=== PATIENT | female | born 1970 | race Caucasian/White ===

== ENCOUNTER 2020-10-29 14:51 | Outpatient (REF) | payer MEDICAID, SELFPAY ==
[2020-10-29 19:43] LABS: ALT 47 U/L (14-59); AST 24 U/L (15-37); Albumin 4.1 g/dL (3.4-5.0); Alkaline Phosphatase 89 U/L (46-116); Anion Gap 11.3 mmol/L (3-11); BUN 15 mg/dL (7-18); Bilirubin, Total 0.2 mg/dL (0.2-1.0); CO2 27.7 mmol/L (21.0-32.0); CREATININE 0.7 mg/dL (0.55-1.02); Calcium 9.4 mg/dL (8.5-10.1); Calculated LDL 165 mg/dL (<100); Chloride 102 mmol/L (98-107); Cholesterol 276 mg/dL (<200); Glucose 96 mg/dL (74-106); HDL Cholesterol 76 mg/dL (40-60); Potassium 4.4 mmol/L (3.5-5.1); Sodium 141 mmol/L (136-145); TSH (W/Ref FT4) 2.25 uIU/mL (0.36-3.74); Total Protein 7.8 g/dL (6.4-8.2); Triglyceride 178 mg/dL (<150)
== END 2020-10-29 14:52 | disposition home or self-care (01) ==
LOC: NCHCN 14:51
PROVIDERS: Visit Provider Nurse Practitioner
DX: L68.0 Hirsutism (principal); M34.9 Systemic sclerosis, unspecified; Z83.49 Family history of other endocrine, nutritional and metabolic diseases; Z13.220 Encounter for screening for lipoid disorders; Z83.3 Family history of diabetes mellitus
CPT/HCPCS: 80053; 80061; 84443

== ENCOUNTER 2021-08-28 03:28 | Outpatient (CLI) | payer MEDICAID, SELFPAY ==
[2021-08-28 08:29] LABS: Hemoglobin A1C 6.4 % (<5.7)
[2021-08-28 09:07] LABS: ALT 51 U/L (14-59); AST 28 U/L (15-37); Albumin 3.4 g/dL (3.4-5.0); Alkaline Phosphatase 98 U/L (46-116); Anion Gap 7.1 mmol/L (3-11); BUN 13 mg/dL (7-18); Bilirubin, Total 0.2 mg/dL (0.2-1.0); CO2 28.9 mmol/L (21.0-32.0); CREATININE 0.7 mg/dL (0.55-1.02); Calcium 8.7 mg/dL (8.5-10.1); Chloride 105 mmol/L (98-107); Glucose 128 mg/dL (74-106); Potassium 4.1 mmol/L (3.5-5.1); Sodium 141 mmol/L (136-145); Total Protein 7.6 g/dL (6.4-8.2)
[2021-08-29 10:13] LABS: HIV-1/2 Ag & Ab Screen Negative (Negative)
[2021-08-29 10:19] LABS: Hepatitis C Ab w Rflx HCV PCR Negative (Negative)
[2021-09-02 12:16] LABS: Renin Activity, Plasma 0.8 ng/mL/h
== END 2021-08-28 03:29 | disposition home or self-care (01) ==
LOC: LBO 03:28 → NCHCO 16:04 → NCHCN 18:00
PROVIDERS: Visit Provider Family Medicine
DX: F32.9 Major depressive disorder, single episode, unspecified (principal); F43.23 Adjustment disorder with mixed anxiety and depressed mood; Z13.1 Encounter for screening for diabetes mellitus; Z11.4 Encounter for screening for human immunodeficiency virus [HIV]; I10 Essential (primary) hypertension; L68.0 Hirsutism
CPT/HCPCS: 36415; 80053; 86803; 87389; 82088; 83036; 84244

== ENCOUNTER 2021-08-28 16:02 | Outpatient (REF) | payer MEDICAID, SELFPAY ==
[2021-08-28 14:19] LABS: Creatinine,Urine 107.75 mg/dL
[2021-08-28 14:34] LABS: Total Volume 1300 ml
[2021-09-01 23:31] LABS: Cortisol, U 17 mcg/24 h (3.5-45); Urine Volume 1300 mL
== END 2021-08-28 16:03 | disposition home or self-care (01) ==
LOC: NCHCN 16:02
PROVIDERS: Visit Provider Family Medicine
DX: I10 Essential (primary) hypertension (principal); L68.0 Hirsutism; E66.8 Other obesity; Z68.41 Body mass index [BMI] 40.0-44.9, adult
CPT/HCPCS: 81050; 82530; 82570; 83789

== ENCOUNTER 2021-09-23 14:46 | Outpatient (REF) | payer MEDICAID, SELFPAY ==
[2021-09-25 23:23] LABS: Midnight Cortisol <50 ng/dL (<100)
== END 2021-09-23 14:47 | disposition home or self-care (01) ==
LOC: NCHCN 14:46
PROVIDERS: Visit Provider Family Medicine
DX: I10 Essential (primary) hypertension (principal)
CPT/HCPCS: 82530

== ENCOUNTER → 2021-10-22 01:17 | Outpatient (CLI) | payer MEDICAID, SELFPAY ==
--- NOTE | 2021-10-22 15:30 | DI.MAMMO_ITS ---
Exam(s) MG MAMMO SCREENING 60 MIN DUR EXAM: MG MAMMO SCREENING 60 MIN DUR CLINICAL HISTORY: SCREENING FOR BREAST CANCER Z12.39, 60 MIN SPOT BECAUSE LARGE BREASTS TECHNIQUE: Mammograms were interpreted according to the usual protocol including computer analysis w [facility] CAD system, tomosynthesis and C-view imaging. COMPARISON: FINDINGS: The breasts are of moderate density with fairly symmetrical distribution of fibroglandular tissue. N o dominant mass is identified in either breast. There is an area of asymmetric density seen laterall y in the right breast on CC views which projects is somewhat superiorly on MLO views of the right bob ast and this area contains a few poorly visualized microcalcifications. Magnification spot compressi on views are requested for further evaluation. No other clumped microcalcification or mass is seen. No priors available for comparison. IMPRESSION: Additional mammographic views of the right breast requested as described above. Breast ultrasound ma y be indicated as well depending on the results of the additional mammographic views. BI-RADS Category 0 - Assessment Incomplete: Need additional imaging evaluation Breast Density - Category B - Scattered areas of fibroglandular density
== END ==
PROVIDERS: Visit Provider Nurse Practitioner Family
DX: Z12.31 Encounter for screening mammogram for malignant neoplasm of breast (principal); R92.8 Other abnormal and inconclusive findings on diagnostic imaging of breast
CPT/HCPCS: 77063; 77067

== ENCOUNTER → 2022-02-17 14:05 | Outpatient (CLI) | payer MEDICAID, SELFPAY ==
--- NOTE | 2022-02-17 | DI.MAMMO_ITS ---
Exam(s) MG MAMMO SCREEN CALL BACK UNI US BREAST RT LIMITED EXAM: MG MAMMO SCREEN CALL BACK UNI and U/S breast RT limited CLINICAL HISTORY: F/U MAMMO, ASYMMETRIC DENSITY BILATERALLY, R92.8. TECHNIQUE: Craniocaudal and mediolateral oblique Full Field Digital Mammography views of the right b reast with Computer Aided Diagnosis followed by Tomosynthesis and right breast ultrasound. COMPARISON: Comparison is made with prior examination. FINDINGS: Mammography/Tomosynthesis: Masses/Architectural Distortion: The ovoid density with internal punctate calcifications is again see n. Microcalcifictions: No suspicious pleomorphic-type are seen. Skin Thickening/Nipple Retraction: None. Limited right breast US: Echotexture: Normal appearance of the glandular tissue. Shadowing: No suspicious foci. Cyst: None. Solid lesions: None seen. Ductal dilation: None. IMPRESSION: 1. Persistent ovoid density with punctate internal calcifications. 2. This area should be further evaluated with biopsy. 3. The findings were discussed with Robin Hare at 4 p.m. on 02/17/2022. BI-RADS Category 4 - Suspicious Abnormality: Biopsy should be considered Breast Density - Category B - Scattered areas of fibroglandular density Breast density Category C or D implies that the patient has dense breast tissue. Dense breast tissue can make it harder to find cancer on a mammogram. Dense breast tissue is also associated with an incr eased risk of breast cancer. This information about the result of the mammogram report was provided to the patient to raise their awareness. Use this report when you speak with the patient about their risks for breast cancer, which includes their family history. At that time, you may recommend additional screening tests (Ultrasoun d or MRI) as these tests may add significant information. A negative radiographic report should not delay biopsy if a dominant or clinically suspicious mass is present. Up to ten percent of cancers are not identified on mammography. A negative report may reinforce clinical impression. Adenosis and dense breasts may obscure an underlying neoplasm. False positive reports average 6 to 10%. Patient will receive a letter notifying them of these results.
== END ==
PROVIDERS: PCP Student in an Organized Health Care Education/Training Program; Visit Provider Nurse Practitioner Family
DX: R92.8 Other abnormal and inconclusive findings on diagnostic imaging of breast (principal)
CPT/HCPCS: 76642; 77063; 77067

== ENCOUNTER 2022-06-25 02:48 | Outpatient (CLI) | payer MEDICAID, SELFPAY ==
--- NOTE | 2022-06-25 | DI.US_ITS ---
Exam(s) US THYROID EXAM: US THYROID CLINICAL HISTORY: ENLARGED THYROID, E04.9. TECHNIQUE: Ultrasound thyroid performed using standard protocol. COMPARISON: No exams were available for comparison FINDINGS: ISTHMUS: 3 mm RIGHT LOBE: Size: 3.7 x 1 x 6 x 1.5 cm Echogenicity: Normal. Vascularity: Normal. Nodules: No suspicious nodules. LEFT LOBE: Size: 3.5 x 1.3 x 1.1 cm Echogenicity: Normal. Vascularity: Normal. Nodules: Cord calcification lower pole with question of adjacent associated nodule versus shadowing f rom the calcification. Area of shadowing 6 x 3 x 5 millimeters. No follow-up recommended.. OTHER FINDINGS: No abnormally enlarged cervical lymph nodes. IMPRESSION: Normal size thyroid. No significant nodules. DATA REPOSITORY:
== END 2022-06-25 03:08 ==
PROVIDERS: Visit Provider Nurse Practitioner Family
DX: E04.9 Nontoxic goiter, unspecified (principal)
CPT/HCPCS: 76536

== ENCOUNTER 2022-08-04 16:22 | Outpatient (REF) | payer MEDICAID, SELFPAY ==
--- NOTE | 2022-08-04 15:50 | PAPFT_PTH ---
PATIENT: Paulina Olmstead LOC: PATTI U#:[id number] AGE/SX: 51/F ROOM: RE08/04/[address]: Joselin Ching MD : 1970 BED: DIS: 08/04/2022 SPEC #: [id number] RECD: 08/04/22 17:11 STATUS: SOM REKacey #: [id number] ALESSANDRA: 08/04/22 15:[address]: Joselin Ching DEPT: [facility] Cytology RECD BY: Mirtha Allen Tissues: 1 - CX/ENDOCX FOR PAP SMEARS Procedures: PAP THIN PREP/UVM Screening HPV DNA PROBE Comments: [id number]
== END 2022-08-04 16:23 | disposition home or self-care (01) ==
LOC: LBN 16:22
PROVIDERS: Visit Provider Obstetrics & Gynecology
DX: Z12.4 Encounter for screening for malignant neoplasm of cervix (principal); Z11.51 Encounter for screening for human papillomavirus (HPV)
CPT/HCPCS: 88142; 87624

== ENCOUNTER 2023-04-15 12:40 | Outpatient (REF) | payer MEDICAID, SELFPAY ==
--- OUTSIDE RECORDS SUMMARY | 2023-04-15 12:42 | XMS_ITS | Continuity of Care Document ---
Author Name Unknown Organization [facility] Address [address] [place] [address] Care Team Providers Care Cab Station Attendant Name Role Phone Archie Castro Primary Care Physician [phone] Encounter [facility] Date(s): 06/30/22 - 06/30/22 [facility] [address] [place] [address] Encounter Diagnosis DEONDRE (obstructive sleep apnea)(Discharge Diagnosis) - 06/30/22 PLMD (periodic limb movement disorder)(Discharge Diagnosis) - 06/30/22 Medically complex patient(Discharge Diagnosis) - 06/30/22 Insomnia(Discharge Diagnosis) - 06/30/22 Discharge Disposition: Home or Self Care Attending Physician: Maverick Villanueva MD Allergies, Adverse Reactions, Alerts Substance Reaction Severity Status penicillins Eruption Severe Active Assessment and Plan Future Appointments Functional Status 06/30/22 Other exposure to Infectious Disease Non e Medications Flonase 50 mcg/inh nasal spray 1 sprays, Nasal, Daily, 1 spray per nostril daily (2 sprays total daily), # 15.8 mL, 3 Refill(s), [id number] Start Date: 09/30/21 Status: Ordered hydroCHLOROthiazide 12.5 mg oral capsule 12.5 mg = 1 cap, Oral, Daily, # 30 cap, 0 Refill(s) Start Date: 09/30/21 Status: Ordered magnesium gluconate 500 mg oral tablet 500 mg = 1 tab, Oral, Daily, if not avail, may subsitute with magnesium gluconate 250mg tab 2 tabs daily, 180 tabs x 3 refills, # 90 tab, 3 Refill(s), [facility] #[id number] Start Date: 09/30/21 Stop Date: 09/25/22 Status: Ordered traZODone 50 mg oral tablet See Instructions, take 0.5 to 3 tabs qHS, # 90 cap, 2 Refill(s), [facility] #[id number] Start Date: 09/30/21 Status: Ordered Vitamin D3 2000 intl units oral capsule 50 mcg 1 cap, Oral, Daily, # 90 cap, 3 Refill(s), [facility][id number] Start Date: 09/30/21 Stop Date: 09/25/22 Status: Ordered Problem List Condition Confirmation Course Effective Dates Status Health Status Informant Assessment of risk for apnea Confirmed 04/30/21 Active Leg cramps Confirmed Active Daytime sleepiness Confirmed Active Depressive disorder Confirmed 04/30/21 Active Family history of diabetes mellitus Confirmed 04/30/21 Active Fatigue Confirmed Active FH: Thyroid disorder Confirmed 04/30/21 Active Hirsutism Confirmed 04/30/21 Active Hyperlipidemia screening Confirmed 04/30/21 Active Localized scleroderma Confirmed 04/30/21 Active Psychophysiologic insomnia Confirmed Active Snoring Confirmed Active Vital Signs Most recent to oldest [Reference Range]: 1 Peripheral Pulse Rate [60-100 bpm] 74 bp m (06/30/22 3:13 PM) Blood Pressure [90-140/60-90 mmHg] 131/7 7mmHg (06/30/22 3:13 PM) Weight 94.35 kg (06/30/22 3:13 PM) Weight Measured (lbs) 208.006 lb (06/30/22 3:13 PM) Height 154 cm (06/30/22 3:13 PM) Height/Length Measured (inches) 60.63 in ch (06/30/22 3:13 PM) BSA Measured 2.01 m2 (06/30/22 3:13 PM) Body Mass Index 39.78 kg/m2 (06/30/22 3:13 PM) Social History Social History Type Response Tobacco Never tobacco user T obacco Use:. Sex Female Progress note * Shawn Capps: PERFORM Event Display: Progress Note - Physician Authored Date: [id number] Patient Care team information Care Team Personnel Name: Robin Penaloza DNP Position: No Access Member Role: Family Medicine Address: Address: [address] [place] [id number] Name: Archie Castro MD Position: No Access Member Role: Primary Care Physician Address: Address: [facility] [address] [place] [address] [place] [address]-
--- OUTSIDE RECORDS SUMMARY | 2023-04-15 12:42 | XMS_ITS | Continuity of Care Document ---
Author Name Unknown Organization [facility] Address [address] [place] [address] Care Team Providers Care Adapted Physical Education Specialist Name Role Phone Archie Castro Primary Care Physician Encounter [facility] Date(s): 04/07/22 - 04/07/22 [facility] [address] [place] [address] Encounter Diagnosis Obstructive sleep apnea(Discharge Diagnosis) - 04/07/22 Nocturnal hypoxemia(Discharge Diagnosis) - 04/07/22 Periodic limb movement disorder(Discharge Diagnosis) - 04/07/22 Discharge Disposition: Home or Self Care Attending Physician: Maverick Villanueva MD Allergies, Adverse Reactions, Alerts Substance Reaction Severity Status penicillins Eruption Severe Active Assessment and Plan Future Appointments Functional Status 04/07/22 Other exposure to Infectious Disease Non e Medications Flonase 50 mcg/inh nasal spray 1 sprays, Nasal, Daily, 1 spray per nostril daily (2 sprays total daily), # 15.8 mL, 3 Refill(s), [id number] Start Date: 09/30/21 Status: Ordered hydroCHLOROthiazide 12.5 [...] refills, # 90 tab, 3 Refill(s), [id number] Start Date: 09/30/21 Stop Date: 09/25/22 Status: Ordered traZODone 50 mg oral tablet See Instructions, take 0.5 to 3 tabs qHS, # 90 cap, 2 Refill(s), [facility][id number] Start Date: 09/30/21 Status: Ordered Vitamin D3 2000 intl units oral capsule 50 mcg 1 cap, Oral, Daily, # 90 cap, 3 Refill(s), [facility][id number] Start Date: 09/30/21 Stop Date: 09/25/22 Status: [...] Most recent to oldest [Reference Range]: 1 Weight 93.89 kg (04/07/22 2:48 PM) Weight Measured (lbs) 206.992 lb (04/07/22 2:48 PM) Height 154 cm (04/07/22 2:48 PM) Height/Length Measured (inches) 60.63 in ch (04/07/22 2:48 PM) BSA Measured 2 m2 (04/07/22 2:48 PM) Body Mass Index 39.59 kg/m2 (04/07/22 2:48 PM) Social History Social History Type Response Tobacco Never tobacco user T obacco Use:. Sex Female Physician Outpatient Note * Maverick Villanueva MD: PERFORM, MODIFY, MODIFY Event Display: Office Clinic Note Physician Authored Date: [id number] [place] :1970 Age:51 years Sex:Female Visit Date:04/07/2022 Primary Care Physician: Archie Castro MD Chief Complaint psg results f/u History of Present Illness Pt states she slept well on the night of her PSG and had a great experience with the sleep clinic staff. She did not take any sleep aids that night and is off of sleep aides currently. ?? She is no longer taking Nyquil at night for sleep. ?? She states her BP is better controlled when she can do meditation. Review of Systems A 10-point REVIEW OF SYSTEM was obtained and reviewed, includes CONSTITUTIONAL, EYES, NOSE, THROAT,RESPIRATORY, HEART, GASTROINTESTINAL, UROLOGIC, MUSCULOSKELETAL, PSYCHIATRY, SKIN systems. Pertinent symptoms are discussed in history, otherwise negative. Physical Exam Vitals & Measurements HT:??154??cm?? WT:??93.89??kg?? BMI:??39.59?? BSA:??2?? General well appearing??statedage, no acute distress,??obesebuild HEENT: Significant mckenzie/moustache noted PSYCHIATRIC: well groomed, fluent speech, good insight, linear thought process, good eye contact,balanced NEUROLOGIC: alert, oriented, symmetric facial expression Assessment/Plan 1.??Obstructive sleep apnea??G47.33 Ordered: 34470 SL Titration PSG, 04/07/22, vivian in about 1 month so she can try cpap at home first (ok to tryfor just a week). Pt requests Ian as she had good experience w/ her and appreciated Ian going above and beyond to alleviate pt's concerns about geting Covid. Pls alert Chr... ?? 2.??Nocturnal hypoxemia??G47.34 Ordered: 87788 SL Titration PSG, 04/07/22, vivian in about 1 month so she can try cpap at home first (ok to tryfor just a week). Pt requests Ian as she had good experience w/ her and appreciated Ian going above and beyond to alleviate pt's concerns about geting Covid. Pls alert Chr... ?? 3.??Periodic limb movement disorder??G47.61 Ordered: 88591 SL Titration PSG, 04/07/22, vivian in about 1 month so she can try cpap at home first (ok to tryfor just a week). Pt requests Ian as she had good experience w/ her and appreciated Ian going above and beyond to alleviate pt's concerns about geting Covid. Pls alert Chr... ?? This visit was performed virtually using synchronous audio-visual connection via Zoom. As such, thephysical examination is necessarily limited. The risks and benefits of the use of this alternative platform were discussed with the patient and or guardian and verbal consent was obtained. My assessment and plans are based on such examination. Further evaluation, including in-person examination, may be needed depending on the response to management or today's recommendation.? The patient is??home.?? The provider is??home. ?? The patient has been positively identified and has consented to a video visit. ?? I provided greater than??40??minutes in the care of this patient including chart review and documentation, more than half the time was spent in eibp-it-ntrx counseling. ?? 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 ?? 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 ? Clinical Data Reviewed:? [place] Sleepiness Scale ESS - Sitting and reading: Moderate chance of dozing (04/07/22) ESS - Sitting and talking to someone: Would never doze (04/07/22) ESS - Watching television: Moderate chance of dozing (04/07/22) ESS - Sitting after lunch w/out alcohol: Slight chance of dozing (04/07/22) ESS - Sitting inactive in a public place: Slight chance of dozing (04/07/22) ESS - In a car while stopped in traffic: Would never doze (04/07/22) ESS - In a car for an hour without break: High chance of dozing (04/07/22) ESS - Lying down in afternoon: High chance of dozing (04/07/22) ESS - [place] Sleepiness Scale Total: 12 (04/07/22) ? Sleep Clinical Timeline:?? Seen on 09/30/2021??for sleep consult at the kind??request of Sybil??AUDI Giraldo??for sleep apnea. Suspect Obstructive Sleep Apnea based on: loud snoring, daytime fatigue, daytime sleepiness, witnessed apneas, feeling like not getting air when waking up, unrefreshing sleep,difficulty falling asleepand/or other times difficulty staying asleep and unable to return to sleep, and difficulty of??maintaing normal blood pressure. PSG was ordered. Also suspect possible PLMD due to tossing and turning and legs moving during sleep,??will monitor this at PSG ?? 02/19/2022. Diagnostic PSG. Wt.: 221.19 lbs. ??BMI = 42.48 kg/m2.?? 1.??Very Severe Obstructive Sleep Apnea associated with significant nocturnal hypoxemia 2.??Overall AHI: 49.7/hr; Overall RDI: 54.4/hr; REM AHI: 62.7/hr; Supine AHI: 80/hr; Right Lateral AHI:39 /hr; Left Lateral AHI: 14/hr; Prone AHI: N/A/hr. 3.??Mean SpO2: 89% and Leonidas SpO2: 58% on Room Air; 122.0 minutes spent with SpO2 less than or equal to 88% on Room Air. 4.??Moderate Periodic Limb Movement Disorder without significant arousals, PLM index 20.7/hr. PLM arousal index 1.8/hr.??Frequent leg movements observed in association with respiratory events, which did not meet criteria to be included in Periodic Limb Movement Index. ?? 04/07/2022: Start auto CPAP?? 5 to 15cm H20. Provided letter??for pt accessibility for running water and electricity at her request. Plan for titration PSG. ? Today's Assessment and Plan: ?We reviewed sleep study results in detail including apnea hypopnea index, positional data andoxygen data. ?We reviewed discussion of Obstructive Sleep Apnea, including pathophysiology,??associated superintendent marine oil terminal cardiovascular, neurocognitive and overall health effects, and importance of treatment.?Treatment options discussed.?Patient elects to proceed with PAP therapy.?Extensively reviewed process of starting treatment and commonly encountered problems and ways to find support and troubleshooting problems. ?Avoid drowsy driving and drowsy driving precautions as applicable.?Weight loss as applicable.?Discussed relationship between DEONDRE and weight loss.?Proceed with Titration Polysomnogram. In-facility sleep study requested. Order for auto CPAP 5 to 15cm H20 sent with PAP supplies., sent to [facility] Pt is off of all sleep aides at this time. Pt shares she is living on assisted housing from [place] and will need a letter for having electricity covered by the state for her CPAP machine. Titration PSG Instructions:??Pay attention to mask fit and refit as needed.??Try to find optimal pressure for both lateral and supine position sleep, especially Supine REM sleep. Document medicationsused on night of PSG.??If hypoxemia persist after respiratory events are resolved on CPAP, switch to BIPAP starting with pressure support of 4cm, increase pressure support up to 10cm if doing so helps with oxygen saturation. ?? Follow up: 2-3 months or sooner if needed. ?? Remote Scribed by??Chris Latham Patient Instructions ?? 04/07/2022 ?? To Whom It May Concern, ?? Paulina Olmstead is a patient under my care in the Sleep Clinic. ??She just got diagnosed with Very Severe Obstructive Sleep Apnea with Nocturnal Hypoxemia. ??This is a serious but treatable condition. ??In order to adequately treat this disorder, patient will need to use a PAP Machine with Humidifier,which requires electricity throughout the night. She will also need access to running water, in order to clean and care for her PAP Machine. ?? Thank you for time and attention. ??If you have any further questions, please feel free to reach out to me. ?? Sincerely, ?? Maverick Villanueva MD Board Certified Sleep Physician [facility] [place], [place] [phone] (Option??1) ?? Referral Orders Referral Management, Medical Service: RM Other, Reason: Auto CPAP 7 to 16cm; please try to expeditein-person set up due to severe DEONDRE, Start: 04/07/22, Instructions: [facility] Problem List/Past Medical History Ongoing Assessment of risk for apnea Daytime sleepiness Depressive disorder Family history of diabetes mellitus Fatigue FH: Thyroid disorder Hirsutism Hyperlipidemia screening Leg cramps Localized scleroderma Morbid obesity Psychophysiologic insomnia Snoring Historical No qualifying data Medications Flonase 50 mcg/inh nasal spray, 1 sprays, Nasal, Daily, 3 refills hydroCHLOROthiazide 12.5 mg oral capsule, 12.5 mg= 1 cap, Oral, Daily magnesium gluconate 500 mg oral tablet, 500 mg= 1 tab, Oral, Daily, 3 refills traZODone 50 mg oral tablet, See Instructions, 2 refills Vitamin D3 2000 intl units oral capsule, 50 mcg= 1 cap, Oral, Daily, 3 refills Allergies penicillins??(Eruption) Social History Electronic Cigarette/Vaping Electronic Cigarette Use: Never. Tobacco Never tobacco user Tobacco Use:. Family History Family history is negative Electronically Signed on 04/07/22 05:12 PM Maverick Villanueva MD Reviewed by: Maverick Villanueva MD Patient Care team information Personnel Name: Archie Castro MD Address: Address: [address] [place] [address]- [place]
--- OUTSIDE RECORDS SUMMARY | 2023-04-15 12:42 | XMS_ITS | Continuity of Care Document ---
Author Name Unknown Organization [facility] Address [address] [place] [address] Care Team Providers Care Diabetes Solutions Specialist Name Role Phone Archie Castro Primary Care Physician [phone] Encounter [facility] Date(s): 06/30/22 - 08/25/22 [facility] [address] [place] [address] Discharge Disposition: Home or Self Care Attending Physician: Maverick Villanueva MD Admitting Physician: Maverick Villanueva MD Referring Physician: Maverick Villanueva MD Allergies, Adverse Reactions, Alerts Substance Reaction Severity Status penicillins Eruption Severe Active Assessment and Plan Future Appointments Medications Flonase 50 mcg/inh nasal spray 1 sprays, Nasal, Daily, 1 spray per nostril daily (2 sprays total daily), # 15.8 mL, 3 Refill(s), [id number] Start Date: 09/30/21 Status: Ordered hydroCHLOROthiazide 12.5 [...] refills, # 90 tab, 3 Refill(s), [facility] #[id number] Start Date: 09/30/21 Stop Date: 09/25/22 Status: Ordered traZODone 50 mg oral tablet See Instructions, take 0.5 to 3 tabs qHS, # 90 cap, 2 Refill(s), [facility] #[id number] Start Date: 09/30/21 Status: Ordered Vitamin D3 2000 intl units oral capsule 50 mcg 1 cap, Oral, Daily, # 90 cap, 3 Refill(s), Pharmacy: [facility] #[id number] Start Date: 09/30/21 Stop Date: 09/25/22 Status: [...] Psychophysiologic insomnia Confirmed Active Snoring Confirmed Active Social History Social History Type Response Tobacco Never tobacco user T obacco Use:. Sex Female Patient Care team information Care Team Personnel Name: Robin Penaloza DNP Position: No Access Member Role: Family Medicine Address: Address: [facility] [address] [facility] [place] [address] [place] Name: Archie Castro MD Position: No Access Member Role: Primary Care Physician Address: Address: [facility] [address] [facility] [address]
--- OUTSIDE RECORDS SUMMARY | 2023-04-15 12:42 | XMS_ITS | Continuity of Care Document ---
Author Name Unknown Organization [facility] Address [address] [place] [address] Care Team Providers Care Associate Director Qa Name Role Phone Maverick Villanueva Primary Care Physician Encounter [facility] Date(s): 09/30/21 - 12/19/21 [facility] [address] [place] [address] Discharge Disposition: Home or Self Care Attending Physician: Maverick Villanueva MD Admitting Physician: Maverick Villanueva MD Referring Physician: Maverick Villanueva MD Allergies, Adverse Reactions, Alerts Substance Reaction Severity Status penicillins Eruption Severe Active Assessment and Plan Future Appointments Medications Flonase 50 mcg/inh nasal spray 1 sprays, Nasal, Daily, 1 spray per nostril daily (2 sprays total daily), # 15.8 mL, 3 Refill(s), Pharmacy: [facility] #[id number] Start Date: 09/30/21 Status: Ordered hydroCHLOROthiazide 12.5 [...] refills, # 90 tab, 3 Refill(s), [facility]acy: [facility] #[id number] Start Date: 09/30/21 Stop Date: 09/25/22 Status: Ordered traZODone 50 mg oral tablet See Instructions, take 0.5 to 3 tabs qHS, # 90 cap, 2 Refill(s), Pharmacy: [facility] #[id number] Start Date: 09/30/21 Status: Ordered Vitamin D3 2000 intl units oral capsule 50 mcg 1 cap, Oral, Daily, # 90 cap, 3 Refill(s), Pharmacy: [facility] #[id number] Start Date: 09/30/21 Stop Date: 09/25/22 Status: [...] Use:. Sex Female Patient Care team information Personnel Name: Maverick Villanueva MD Address: Address: Sleep Medicine [address] [place] [address] [place] [address]- [place]
--- OUTSIDE RECORDS SUMMARY | 2023-04-15 12:43 | XMS_ITS | Continuity of Care Document ---
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 Name Role Phone Unavailable, Physician Primary Care Physician Un available [facility]counter [facility] Date(s): 02/19/22 - 02/19/22 [facility] [address] [place] [address] Discharge Disposition: Home or Self Care Attending Physician: Maverick Villanueva MD Admitting Physician: Maverick Villanueva MD Referring Physician: Maverick Villanueva MD Allergies, Adverse Reactions, Alerts Substance Reaction Severity Status penicillins Eruption Severe Active Assessment and Plan Future Appointments Medications Flonase 50 mcg/inh nasal spray 1 sprays, Nasal, Daily, 1 spray per nostril daily (2 sprays total daily), # 15.8 mL, 3 Refill(s), Pharmacy: [facility] #[id number] Start Date: 09/30/21 Status: Ordered hydroCHLOROthiazide 12.5 [...] refills, # 90 tab, 3 Refill(s), Pharmacy: [facility] #[id number] Start Date: 09/30/21 Stop Date: 09/25/22 Status: Ordered traZODone 50 mg oral tablet See Instructions, take 0.5 to 3 tabs qHS, # 90 cap, 2 Refill(s), Pharmacy: [facility] #[id number] Start Date: 09/30/21 Status: Ordered Vitamin D3 2000 intl units oral capsule 50 mcg 1 cap, Oral, Daily, # 90 cap, 3 Refill(s), Pharmacy: [facility]/pharmacy #[id number] Start Date: 09/30/21 Stop Date: 09/25/22 Status: [...] Female Patient Care team information Personnel Name: Unavailable, Physician
[2023-04-15 15:40] LABS: HCT 46.2 % (36.0-46.0); HGB 15.3 g/dL (11.2-15.7); MCH 28.4 pg (27.0-33.0); MCHC 33.1 % (32.0-36.0); MCV 86 fL (80-95); MPV 11.2 fL (8.0-11.0); Platelet Count 348 10^3/uL (130-400); RBC 5.39 10^6/uL (3.93-5.22); RDW 13.6 % (11.7-14.6); RDW-SD 42.4 fL
[2023-04-15 16:23] LABS: ALT 50 U/L (14-59); AST 28 U/L (15-37); Albumin 4.1 g/dL (3.4-5.0); Alkaline Phosphatase 90 U/L (46-116); Anion Gap 12.7 mmol/L (3-11); BUN 14 mg/dL (7-18); Bilirubin, Total 0.3 mg/dL (0.2-1.0); CO2 26.3 mmol/L (21.0-32.0); CREATININE 0.7 mg/dL (0.55-1.02); Calcium 9.6 mg/dL (8.5-10.1); Chloride 102 mmol/L (98-107); Estimated GFR 103.35 (mL/min/1.73m2); Glucose 119 mg/dL (74-106); Potassium 4.3 mmol/L (3.5-5.1); Sodium 141 mmol/L (136-145); Total Protein 7.7 g/dL (6.4-8.2); Vitamin B12 656 pg/mL (193-986)
[2023-04-15 16:53] LABS: Hemoglobin A1C 6.4 % (<5.7)
== END 2023-04-15 12:41 | disposition home or self-care (01) ==
LOC: NCHCN 12:40
PROVIDERS: Visit Provider Family Medicine
DX: R73.03 Prediabetes (principal); L29.9 Pruritus, unspecified
CPT/HCPCS: 80053; 85027; 82607; 83036

== ENCOUNTER 2024-11-22 17:22 | Outpatient (REF) | payer MEDICAID, SELFPAY ==
--- NOTE | 2024-11-22 16:15 | PAPFT_PTH ---
PATIENT: Paulina Olmstead LOC: PATTI U#:[id number] AGE/SX: 54/F ROOM: RE11/22/[address]: Joselin Ching MD : [id number] BED: DIS: 11/22/2024 SPEC #: [id number] RECD: 11/22/24 18:20 STATUS: SOM REQ #: [id number] ALESSANDRA: 11/22/24 16:[address]: Joselin Ching DEPT: [facility] Cytology RECD BY: Mirtha Allen ENTERED: 11/22/24 18:20 SP TYPE: PAPFT OTHR DR: Lis Rogers Tissues: 1 - CX/ENDOCX FOR PAP SMEARS Procedures: PAP THIN PREP/[facility] Screening HPV DNA PROBE Comments: [id number] (HPV 16 & 18/45) (CHLAMYDIA/GC)
[2024-11-23 13:17] LABS: Chlamydia Result Negative (Negative); GC Result Negative (Negative)
== END 2024-11-22 17:23 | disposition home or self-care (01) ==
LOC: LBN 17:22
PROVIDERS: PCP Family Medicine; Visit Provider Obstetrics & Gynecology
DX: Z12.4 Encounter for screening for malignant neoplasm of cervix (principal)
CPT/HCPCS: 87491; 87591; 88142; 87624